=== PATIENT | male | born 1985 | race Caucasian/White ===

== ENCOUNTER 2021-05-20 11:06 | Emergency (ER) | payer OTHER, SELFPAY ==
[2021-05-20 11:24] VITALS: BP 124/82; PULSE 65; RESP 18; TEMP 36.8; O2SAT 98
--- NOTE | 2021-05-20 11:31 | ED.URI ---
HPI - URI/Sore Throat General Chief Complaint: Upper Respiratory Infection Stated Complaint: Congestion,Sinus Time Seen by Provider: 05/20/21 11:31 Source: patient and RN notes reviewed Mode of arrival: ambulatory Limitations: no limitations History of Present Illness HPI Narrative: 35-year-old male presents to the [facility] with complaints of congestion, ear pain, cough, runny nose and watery eyes for the last 9 days. and child same symptoms. Son was tested for Covid last Monday which was negative. Son was then diagnosed with a sinus infection and bilateral ear infection. Patient denies any fevers. No shortness of breath or chest pain. No abdominal pain. Patient is not Covid vaccinated MD elicited complaint: cough, rhinorrhea, nasal congestion and sinus pain Related Data Allergies Allergy/AdvReac Type Severity Reaction Status Date / Time No Known Allergies Allergy Mild Verified 05/20/21 11:24 Review of Systems Review of Systems: All systems reviewed & are unremarkable except as noted in HPI and below Constitutional: Constitutional: Reports no additional constitutional complaints, Denies chills and Denies fever(s) Eyes: Eyes: Reports no additional eye complaints ENT: Reports as per HPI and Reports nasal congestion Cardiovascular: Cardiovascular: Reports no additional cardiovascular complaints and Denies chest pain Respiratory: Respiratory: Reports as per HPI, Reports cough, Denies dyspnea and Denies wheezing Gastrointestinal: Gastrointestinal: Reports no additional gastrointestinal complaints, Denies abdominal pain, Denies diarrhea, Denies nausea and Denies vomiting Musculoskeletal: Musculoskeletal: Reports no additional musculoskeletal complaints Integumentary/Breasts: Skin/Breast: Reports system reviewed and no additional complaints, except as docu Neurologic: Reports system reviewed and no additional complaints, except as documented Psychiatric: Psychiatric: Reports no additional psychiatric complaints Allergic/Immunologic: Allergic/Immunologic: Reports no additional allergic/immunologic complaints, Denies lip swelling, Denies throat swelling and Denies tongue swelling [facility] Past Medical History Medical History (Updated 05/20/21 @ 14:14 by Nadia Martinez) No significant medical problems Surgical History Surgical History (Updated 05/20/21 @ 14:15 by Nadia Martinez) History of orthopedic surgery Right lower leg Social History Social History (Updated 05/20/21 @ 14:15 by Nadia Martinez) Smoking status: Never smoker Substance use: never Living arrangements: with family Gender identity (if verbalized by the patient): Male Comments At the time of my signature, I reviewed and agree with the nursing past medical, surgical, social, and family history. There is no relevant family history pertinent to the patient complaint. Exam Const: General: healthy appearing, no acute distress and alert Nutritional Appearance: well nourished Orientation/consciousness: patient oriented x3 Limitations: no limitations HENMT: Head: normal to inspection, normocephalic and atraumatic Ears: hearing grossly normal bilaterally, external ears normal, EAC's normal and TM abnormal wth effusion serous bilateral General nose exam: Normal external nose present, Abnormal mucous membranes and turbinates present boggy bilateral and erythematous bilateral and Nasal discharge present clear Face and sinus: normal facial exam, face symmetric and sinus tenderness frontal and maxillary Mouth: Yes Normal oral and palatal mucosa present and Yes lip normal Throat: tonsils normal, uvula midline and postnasal drainage Eyes: Conjunctivae: conjunctivae normal Pupils: Equal, round and reactive pupils present Neck: Neck: normal visual inspection, no lymphadenopathy and no meningeal signs Chest: Chest palpation & inspection: normal inspection of the chest Resp: Effort & Inspection: normal respiratory effort and no use of accessor
== END 2021-05-20 11:39 | disposition home or self-care (01) ==
PROVIDERS: Emergency Provider Nurse Practitioner
DX: J01.40 Acute pansinusitis, unspecified (principal)
CPT/HCPCS: 99213; G0463

== ENCOUNTER 2023-09-10 01:05 | Observation (INO) | payer OTHER, SELFPAY ==
[2023-09-10] VITALS (10 sets, daily range): BP systolic 110–126; BP diastolic 63–82; PULSE 63–93; RESP 15–17; TEMP 36.3–37.2; O2SAT 96–100; BMI 25.9
--- NOTE | 2023-09-10 02:29 | ADMGEN ---
This patient, Maik Montilla, was admitted to Medical Room 342-01. Patient/family oriented to hospital policies and general routines including ID bracelet, bed and alarms, visiting hours, pain management, procedures, bathroom and other care routines, personal items, smoking policy, room service/diet, and visiting hours. Information on how to activate the Rapid Response Team has been discussed. Patient/Family are encouraged to report perceived risks to care and to ask questions if they do not understand what they are told or what they should do.
[2023-09-10] MEDS: DEXTROSE 5%/LACTATED RINGERS 1,000 ML 100 ML IV CONT (03:59)
[2023-09-10] MEDS: ceFAZolin 2 GM/D5W 50 ML 2 GM/50 ML BAG IVPB (03:59)
[2023-09-10] MEDS: KETOROLAC 30 MG/ML VIAL (*BKC) IV PUSH (09:59)
--- NOTE | 2023-09-10 11:00 | PM.SD2 ---
Same Day Admit/Disch: HPI History of Present Illness Chief complaint: Appendicitis Narrative: Maik Montilla is a 37 year old maleWho developed right-sided abdominal pain about 3 days ago. It was not very severe and it was not accompanied by other symptoms. He went to work the next day and worked all day but it was very uncomfortable. Then yesterday he started having vomiting and diarrhea along with increasing pain. He went to the emergency room at [facility] at [place], [place]. He was evaluated there and found to have right lower quadrant tenderness but a normal white [place] 8000. CT scan was done and showed uncomplicated acute appendicitis. He also had a small umbilical hernia. They have no surgical services at [facility]. He was transferred here early this morning for surgical evaluation and treatment. He has had no previous abdominal surgery. He did have fractures of his lower leg and had a plate placed. His abdominal pain is persistent but no worse than it was last night. He is seen now regarding right-sided abdominal pain and a likely diagnosis of appendicitis. [facility] Past Medical History Medical History (Updated 09/10/23 @ 13:43 by Marco Anotny MD) Appendicitis Surgical History Surgical History History of orthopedic surgery Right lower leg Family History Family History Mother Diabetes mellitus Father [place] (myocardial infarction) Social History Social History Smoking status: Never smoker Second hand tobacco smoke exposure: No Alcohol intake: current Drinks per week: 15 Substance use: current Substance use type: marijuana Other substance usage details: smokes marijuana on weekends Do You Feel Safe in your Home?: No Lack of Transportation: No Lack of Food: Never True Current Housing: I Have Housing Concerned About Future Housing: No Difficulty Paying Gas/Electric Bills: No Difficulty Paying for Meds: No Currently Unemployed: No Education: Associate Degree Difficulty w/ Childcare or Family Care: No Living arrangements: with family Gender identity (if verbalized by the patient): Male Spiritual care concerns: No Same Day Admit/Disch: Med Pre-admit Medications Home Medications Medication Instructions Recorded Confirmed Type ketorolac 10 mg tablet 10 mg PO Q6H 4 days #16 tabs 09/10/23 Rx oxycodone-acetaminophen 5 mg-325 0.5 - 1 tablet PO Q6H PRN pain #10 09/10/23 Rx mg tablet tabs Review of Systems Review of Systems All systems reviewed & are unremarkable except as noted in HPI and below ( HPI and those items noted below) Constitutional Constitutional: Denies chills and Denies fever(s) Cardiovascular Cardiovascular: Denies chest pain, Denies diaphoresis, Denies dyspnea and Denies paroxysmal nocturnal dyspnea Respiratory Respiratory: Denies chest congestion, Denies cough and Denies dyspnea Integumentary/Breasts Skin/Breast: Denies lesions and Denies rash Exam Const: General: comfortable, no acute distress, alert and awake HENMT: Head: normocephalic and atraumatic Mouth: Yes Normal oral and palatal mucosa present Eyes: Conjunctivae: conjunctivae normal Pupils: Equal, round and reactive pupils present EOM: EOMs intact bilaterally Neck: Neck: normal visual inspection, no lymphadenopathy and nontender Resp: Effort & Inspection: normal respiratory effort Auscultation: clear to auscultation bilaterally Cardio: Rate: regular rate Rhythm: regular rhythm Heart sounds: no gallops, no murmurs and no rubs GI: Inspection: normal to inspection, non-distended, no scars and visible herniation ( Small umbilical) GI Palp: Yes Soft to palpation, Yes Tenderness to palpation present (GI) ( right lower quadrant with guarding), Yes Guarding due to palpation present (GI), No Hepatom
--- NOTE | 2023-09-10 11:08 | WPDHPUPDATE1 ---
History and Physical Update Update Date/Time: 09/10/23 11:08 History and Physical has been reviewed, including an updated exam of the patient. There are NO changes in the patient's condition. Risks, benefits, and alternatives have been discussed and questions answered. Patient agrees to proceed with procedure.
--- NOTE | 2023-09-10 12:01 | P.PNAN_ITS ---
Anes - Eval Pre Procedure Procedure: Operation Date: 09/10/23 12:30 Proposed Procedures p Laparoscopic Appendectomy - Marco Antony MD Date/Time: 09/10/23 12:01 Surgeon: Arpan Pre Op Diagnosis: Appendicitis Patient Data Age: 37 Gender: M Height: 1.78 m Weight: 82 kg Last Vital Signs Temp 37.2 C 09/10/23 05:33 Pulse 88 09/10/23 05:33 Resp 16 09/10/23 05:33 BP 118/65 09/10/23 05:33 Pulse Ox 96 09/10/23 08:30 O2 Del Method Room Air 09/10/23 08:30 Allergies Allergy/AdvReac Type Severity Reaction Status Date / Time No Known Allergies Allergy Mild Verified 05/20/21 11:24 Home Medications Medication Instructions Recorded Confirmed Type No Home Medications 09/10/23 09/10/23 History Patient hx anesthesia problems: none Family hx anesthesia problems: none Results Review: All pre-operative results and documents have been reviewed as part of the pre- operative evaluation. [facility] Past Medical History Medical History No significant medical problems Surgical History Surgical History History of orthopedic surgery Right lower leg Family History Family History Mother Diabetes mellitus Father [place] (myocardial infarction) Social History Social History Smoking status: Never smoker Second hand tobacco smoke exposure: No Alcohol intake: current Drinks per week: 15 Substance use: current Substance use type: marijuana Other substance usage details: smokes marijuana on weekends Do You Feel Safe in your Home?: No Lack of Transportation: No Lack of Food: Never True Current Housing: I Have Housing Concerned About Future Housing: No Difficulty Paying Gas/Electric Bills: No Difficulty Paying for Meds: No Currently Unemployed: No Education: Associate Degree Difficulty w/ Childcare or Family Care: No Living arrangements: with family Gender identity (if verbalized by the patient): Male Spiritual care concerns: No Exam Day of Procedure 09/10/23 12:01 Patient weight: overweight Heart: regular rate and rhythm Lungs: clear to auscultation Airway: Mallampati scale class II Neurological: alert and oriented
--- NOTE | 2023-09-10 12:02 | PC.NURSE ---
To OR per bed, IV LAC. Report given to sachin CASTRO.
--- NOTE | 2023-09-10 12:11 | WPDANESEPPF ---
Anes - Initial Pre Proc Eval Procedure: Operation Date: 09/10/23 12:30 Proposed Procedures p Laparoscopic Appendectomy - Marco Antony MD Date/Time: 09/10/23 12:11 Surgeon: Marco Antony MD Pre Op Diagnosis: Appendicitis Patient Data Age: 37 Gender: M Height: 1.78 m Weight: 82 kg Last Vital Signs Temp 37.2 C 09/10/23 05:33 Pulse 88 09/10/23 05:33 Resp 16 09/10/23 05:33 BP 118/65 09/10/23 05:33 Pulse Ox 96 09/10/23 08:30 O2 Del Method Room Air 09/10/23 08:30 Allergies Allergy/AdvReac Type Severity Reaction Status Date / Time No Known Allergies Allergy Mild Verified 05/20/21 11:24 Home Medications Medication Instructions Recorded Confirmed Type No Home Medications 09/10/23 09/10/23 History Patient hx anesthesia problems: none Family hx anesthesia problems: none Results Review: All pre-operative results and documents have been reviewed as part of the pre-operative evaluation. [facility] Past Medical History Medical History (Updated 09/10/23 @ 12:11 by Robby Toro MD) Appendicitis Surgical History Surgical History History of orthopedic surgery Right lower leg Family History Family History Mother Diabetes mellitus Father [place] (myocardial infarction) Social History Social History Smoking status: Never smoker Second hand tobacco smoke exposure: No Alcohol intake: current Drinks per week: 15 Substance use: current Substance use type: marijuana Other substance usage details: smokes marijuana on weekends Do You Feel Safe in your Home?: No Lack of Transportation: No Lack of Food: Never True Current Housing: I Have Housing Concerned About Future Housing: No Difficulty Paying Gas/Electric Bills: No Difficulty Paying for Meds: No Currently Unemployed: No Education: Associate Degree Difficulty w/ Childcare or Family Care: No Living arrangements: with family Gender identity (if verbalized by the patient): Male Spiritual care concerns: No Anes - Eval Final PreProcedure Day of Procedure 09/10/23 12:11 Patient weight: normal Heart: regular rate and rhythm Lungs: clear to auscultation Airway: Mallampati scale class 1 Neurological: alert and oriented Last oral intake: >/= 8 hours ASA classification: II Emergent: no Anesthetic plan: proceed Anesthesia type and monitoring: general ETT and standard monitoring Results Review: All pre-operative results and documents have been reviewed as part of the pre-operative evaluation. Informed Consent: The patient's anesthetic plan and its attendant risks and benefits were discussed with the patient/family/POA. Questions were solicited and answers provided to the satisfaction of the patient/family/POA.
[2023-09-10] MEDS: BUPIVACAINE/EPINEPHRINE 0.5% 50 ML VIAL 30 ML INFILTRATE (12:21)
[2023-09-10] MEDS: LACTATED RINGERS 1,000 ML 30 ML IV CONT (12:30)
[2023-09-10] MEDS: ceFAZolin SODIUM 1 GM VIAL 2 GM IV PUSH (12:31)
--- NOTE | 2023-09-10 13:37 | P.OP_ITS ---
Procedure Note - Detailed Date of Procedure 09/10/23 Pre-op Diagnosis Appendicitis Post-op Diagnosis Same Procedure Performed Laparoscopic appendectomy Surgeon Marco Antony MD Anesthesia General and Local Indications Patient has been having right-sided abdominal pain for about 3 days. It got much worse yesterday and he came to the emergency room last night. Evaluation there including CT scan of the abdomen pelvis showed acute appendicitis. He was at an outside hospital and transferred to [facility] early this morning. After evaluation here, he is taken to surgery now for laparoscopic appendectomy. Findings Acute appendicitis Description of Procedure Patient was taken to surgery and induced into general anesthesia. The abdomen is prepped and draped. Trocars were placed in the usual fashion using [employer] optical trocars and a 5 mm camera. Patient's appendix was more in the right upper quadrant than the right lower quadrant. He was in reverse Trendelenburg with the right-side elevated. We were able to grasp and elevate the appendix. The mesoappendix was very thickened. Dissection and cautery was carried out in the mesoappendix. There was some bleeding from branches of the appendiceal artery but this was controlled without difficulty. Eventually we dissected the mesoappendix adequately and cauterized the appendiceal artery thoroughly. We skeletonized the base of the appendix. The appendix was then ligated with a Vicryl endoloop at its base. It was amputated just above the ligature and the mucosa of the appendiceal stump was cauterized. The appendix was then placed immediately in an Endo-Catch bag and retrieved through the 10 11 left lower quadrant port. We replaced the 10 11 port and then reviewed the areas of dissection. There was some old blood that we suctioned away. Some additional cautery was used. Irrigation and suctioning were carried out. All looked good with no evidence of further bleeding. I then used the Montrell cone and closed the fascia at the 10 11 port with an 0 Vicryl suture. We evacuated CO2 and removed the remaining trocar sleeves. Skin wounds were closed with subcuticular 4-0 Monocryl skin suture. The wounds were dressed with Exofin surgical adhesive. Patient was awakened and taken to recovery in good condition. Sponge needle counts were correct x2. Estimated Blood Loss -20 Drains No Packing No Pathology Yes (Appendix) Complications No immediate complications Condition Stable Disposition PACU [facility] Billing Surgery - Charge Forward: Surgery Billing (Laparoscopic appendectomy)
--- NOTE | 2023-09-10 14:08 | PC.NURSE ---
Returned from OR per bed. Report received from Jonatan CASTRO.
--- NOTE | 2023-09-10 16:02 | PC.NURSE ---
Patient tolerated water, jello, and crackers, does not feel like eating much more, denies pain, nausea, eager to d/c
--- NOTE | 2023-09-10 16:27 | PC.NURSE ---
patient able to void without difficulty
--- NOTE | 2023-09-11 09:20 | WPDANESPN ---
Anes - Prog Note Post-Op Date/Time: 09/11/23 09:20 Cardiovascular status: normal Respiratory status: normal Airway patency: baseline Mental status: baseline Post-Op hydration status: normal Vital Signs: Last Vital Signs Temp 36.8 C 09/10/23 15:55 Pulse 63 09/10/23 15:55 Resp 16 09/10/23 15:55 BP 126/82 09/10/23 15:55 Pulse Ox 98 09/10/23 15:55 O2 Del Method Room Air 09/10/23 13:48 O2 Flow Rate 6 09/10/23 13:18 Pain Score (VAS): 0 Post-procedural complaints: none Patient Feedback: Patient satisfied with anesthetic care.
== END 2023-09-10 16:30 | disposition home or self-care (01) ==
PROVIDERS: Admitting Provider Surgery; Visit Provider Surgery
PROC: 0DTJ4ZZ Resection of Appendix, Percutaneous Endoscopic Approach (ICD-10-PCS; CPT 44970; principal; 2023-09-10 12:30)
DX: K36 Other appendicitis (principal); K42.9 Umbilical hernia without obstruction or gangrene; F10.90 Alcohol use, unspecified, uncomplicated; F12.90 Cannabis use, unspecified, uncomplicated; Z79.1 Long term (current) use of non-steroidal anti-inflammatories (NSAID); Z79.891 Long term (current) use of opiate analgesic; Z79.899 Other long term (current) drug therapy
CPT/HCPCS: 44970; 88304; G0378; G0379; J0330; J0690; J1100; J1885; J2250; J2704; J3010; J7120; J7121

== ENCOUNTER 2025-04-02 10:42 | Emergency (ER) | payer OTHER, SELFPAY ==
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
--- NOTE | ~2025-04-02 | XR_ITS ---
EXAMINATION: XR shoulder RT min 2V DATE: 04/02/2025 11:18 INDICATION: Right shoulder pain TECHNIQUE: AP internally and externally rotated, AP oblique externally rotated and transscapular Y vi ews of the right shoulder were obtained. COMPARISON: None FINDINGS: Cephalad dislocation of the right acromioclavicular joint with 1.3 cm cephalad displacement of the la teral head of the clavicle relative to the acromion. There is also widening of the coracoclavicular i nterval which measures approximately 2.2 cm. Normal alignment joint spaces at the glenohumeral joint. No fracture. A few calcified nodules in both lungs along with calcified bilateral hilar lymph nodes consistent with old granulomatous disease. No right-sided pleural effusion or pneumothorax. Soft tiss ues are unremarkable. IMPRESSION: Type III right acromioclavicular joint separation. No fracture. Reviewed, dictated and finalized at location A.
[2025-04-02 10:48] VITALS: BP 121/77; PULSE 73; RESP 19; TEMP 36.7; O2SAT 98
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
--- OUTSIDE RECORDS SUMMARY | 2025-04-02 11:10 | XMS_ITS | Clinical Summary ---
Author Organization [facility] Address [address] [place] [address] Care Team Providers Care Release Manager Name Role Phone Unavailable Primary Care Provider Unavailabl e Source Comments [facility],non-owned Affiliates and Associated Physician Practices is amultiple site organization consisting of ambulatory clinics and hospital sitesin [place], [place], [place] and [place]. This disclosure is being madepursuant to the Care Everywhere program and may not contain all information available regarding this patient. 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 Respiratory Rate 16 12/09/2014 1:45 PM CDT Oxygen Saturation 98% 12/09/2014 1:45 PM CDT Inhaled Oxygen Concentration - - Weight 79.4 kg (175 lb) 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 Height 180.3 cm (5' 11) 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 Body Mass Index 24.41 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 Plan of Treatment Health Maintenance Due Date Last Done Comments HIV SCREENING 2001 HEPATITIS C SCREENING 12/10/2004 DTAP/TDAP/TD VACCINES (1 - Tdap) 2005 HEPATITIS B VACCINE (1 of 3 - 19+ 3-dose series) 2005 HPV VACCINE (1 - 3-dose SCDM series) 2013 COVID-19 VACCINE (2023-2 5 season) 2024 DEPRESSION SCREENING 09/04/2024 INFLUENZA VACCINE (#1) 2025 ZOSTER VACCINE (1 of 2) 2036 HIB VACCINE Aged Out No longer eligi ble based on patient's age to complete this topic MENINGOCOCCAL (Group B) VACC INE SHARED DECISION-MAKING Aged Out No longer eligibl e based on patient's age to complete this topic MENINGOCOCCAL GROUPS A/C/Y/W VACCINE Aged Out No longer eligible b ased on patient's age to complete this topic PNEUMOCOCCAL VACCINE Aged Out No long er eligible based on patient's age to complete this topic Insurance [facility] SELF PAY NO INSURANCE Member Subscriber Plan / Payer (Ef fective for All Dates) Name:Maik Montilla Member ID:Not on file Relation to Subscriber:Not on file Name:MAIK MONTILLA Subscriber ID:Not on file (Home) Address: [address] [place] [address] Payer ID:Not on file Group ID:Not on file Type:Self Pay Address: [place], [place]
--- OUTSIDE RECORDS SUMMARY | 2025-04-02 11:10 | XMS_ITS | Clinical Summary ---
Author Organization [facility] Address [address] [place] [address] Care Team Providers Care Manager Support Services Name Role Phone Grzegorz Dennis MD Primary Care Provider [phone] Allergies No known active allergies Medications No known medications Social History Tobacco Use Types Packs/Day Years Used Date Smoking Tobacco: Never Smokeless Tobacco: Never Alcohol Use Standard Drinks/Week Comments Not Currently 0 (1 standard drink = 0.6 oz pur e alcohol) 2-3/day Sex and Gender Information Value Date Recorded Sex Assigned at Not on file Legal Sex Male 6:29 PM CDT Gender Identity Not on file Sexual Orientation Not on file Last Filed Vital Signs Vital Sign Reading Time Taken Comments Blood Pressure 131/82 06/23/2024 7:01 PM CDT Pulse 64 06/23/2024 7:01 PM CDT Temperature 37 C (98.6 F) 06/23/2024 7:01 PM CDT Respiratory Rate 18 06/23/2024 7:0 1 PM CDT Oxygen Saturation 98% 06/23/2024 7:01 PM CDT Inhaled Oxygen Concentration - - Weight 80.6 kg (177 lb 11.1 oz) 06/23/2024 4:29 PM CDT Height 177.8 cm (5' 10) 06/23/2024 4:29 PM CDT Body Mass Index 25.5 06/23/2024 4:29 PM CDT Plan of Treatment Health Maintenance Due Date Last Done Comments Annual Physical 1989 Hepatitis C 2004 DTaP, Tdap and Td Vaccines ( 1 - Tdap) 2005 Hepatitis B Vaccines (1 of 3 - 19+ 3-dose series) 2005 HPV Vaccines (1 - 3-dose SCD M series) 2013 COVID-19 Vaccine ( - 2023-2 5 season) 2024 Meningococcal B Vaccine Aged Out No l onger eligible based on patient's age to complete this topic Meningococcal Vaccine Aged Out No james dinora eligible based on patient's age to complete this topic Pneumococcal Vaccine: Pediat rics (0 to 5 Years) and At-Risk Patients (6 to 49 Years) Aged Out No longer eligible b ased on patient's age to complete this topic RSV Immunizations Under 20 Months Aged Out No longer eligible based on patient's age to complete this topic Insurance [employer] Care Teams Manager Support Services Relationship Specialty Start Date End Date Grzegorz Dennis MD [address] [place] [address] PCP - General HOSPITALIST 09/09/23
--- OUTSIDE RECORDS SUMMARY | 2025-04-02 11:10 | XMS_ITS | Clinical Summary ---
Author Organization [facility] Address [address] [place] [id number] Phone Care Team Providers Care Veterinary Physiologist Name Role Phone Unavailable Primary Care Provider Unavailabl e Medications albuterol HFA (ProAir HFA) 108 (90 Base) MCG/ACT inhaler Inhale 2 puffs every 4 (four) hours if needed for wheezing or shortness of breath 8.5 g 5 12/09/19 26 Active Social History Tobacco Use Types Packs/Day Years Used Date Smoking Tobacco: Never Assessed Sex and Gender Information Value Date Recorded Sex Assigned at Not on file Legal Sex Male 3:30 PM MDT Gender Identity Not on file Sexual Orientation Not on file Last Filed Vital Signs Vital Sign Reading Time Taken Comments Blood Pressure 135/73 04/25/2019 4:36 PM CDT Pulse 61 04/25/2019 4:36 PM CDT Temperature - - Respiratory Rate - - Oxygen Saturation - - Inhaled Oxygen Concentration - - Weight - - Height - - Body Mass Index - - Plan of Treatment Health Maintenance Due Date Last Done Comments Influenza Vaccine (#1) 2025 Insurance PM [employer]URANCE
[2025-04-02] MEDS: HYDROcodone/acetaminophen (*CRX) 5-325 MG TABLET 1 TAB PO (11:30)
--- OUTSIDE RECORDS SUMMARY | 2025-04-02 12:15 | XMS_ITS | Clinical Summary ---
Author Organization [facility] Address [address] [place] [address] Phone Care Team Providers Care Touring Production Manager Name Role Phone Unavailable Primary Care [...]
--- OUTSIDE RECORDS SUMMARY | 2025-04-02 12:15 | XMS_ITS | Clinical Summary ---
Author Organization [facility] Address [address] [place] [address] Care Team Providers Care Salicylic Acid Blender Name Role Phone Unavailable Primary Care Provider Unavailabl e Source Comments [facility] [employer],non-owned Affiliates and Associated Physician Practices is amultiple site organization consisting of ambulatory clinics and hospital sitesin [place], [place], [place] and [place]. This disclosure is being madepursuant to the Care Everywhere program and may not contain all information available regarding this patient. 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 Gender Identity Not on file Sexual Orientation Not on file Last Filed Vital Signs Vital Sign Reading Time Taken Comments Blood Pressure 117/68 12/09/2014 1:45 PM CDT Pulse 87 12/09/2014 1:45 PM CDT Temperature 36.6 C (97.9 F) 10/20/2015 8:23 AM INTERNATIONAL TRAVEL CONSULTANT Respiratory Rate 16 12/09/2014 1:45 PM CDT Oxygen Saturation 98% 12/09/2014 1:45 PM CDT Inhaled Oxygen Concentration - - Weight 79.4 kg (175 lb) 10/20/2015 8:23 AM INTERNATIONAL TRAVEL CONSULTANT Height 180.3 cm (5' 11) 10/20/2015 8:23 AM INTERNATIONAL TRAVEL CONSULTANT Body Mass Index 24.41 10/20/2015 8:23 AM INTERNATIONAL TRAVEL CONSULTANT Plan of Treatment Health Maintenance Due Date [...] patient's age to complete this topic Insurance [facility] SELF PAY NO INSURANCE Member Subscriber Plan / Payer (Ef fective for All Dates) Name:Maik Montilla Member ID:Not on file Relation to Subscriber:Not on file Name:MAIK MONTILLA Subscriber ID:Not on file (Home) Address: [address] [place] [address] Payer ID:Not on file Group ID:Not on file Type:Self Pay Address: [place], [place]
--- OUTSIDE RECORDS SUMMARY | 2025-04-02 12:15 | XMS_ITS | Clinical Summary ---
Author Organization [facility] Address [address] [place] [address] Care Team Providers Care Supervisor Die Casting Name Role Phone Grzegorz Dennis MD Primary Care Provider [phone] Allergies No known active allergies Medications No [...] complete this topic Insurance [employer] Care Teams Supervisor Die Casting Relationship Specialty Start Date End Date Grzegorz Dennis MD [address] [place] [address] PCP - General HOSPITALIST 09/09/23
== END 2025-04-02 12:31 | disposition home or self-care (01) ==
LOC: ANHED 12:13
PROVIDERS: Emergency Provider Nurse Practitioner Family
DX: S06.0X0A Concussion without loss of consciousness, initial encounter (principal); S43.101A Unspecified dislocation of right acromioclavicular joint, initial encounter; V86.55XA Driver of 3- or 4- wheeled all-terrain vehicle (ATV) injured in nontraffic accident, initial encounter
CPT/HCPCS: 70450; 73030; 99284; A4565; A9270